=== PATIENT | female | born 1960 | race Two or more races ===

== ENCOUNTER 2018-03-12 16:14 | Emergency (ER) | payer OTHER ==
[~2018-03-12] VITALS: Ht 170.2 cm; Wt 81.6 kg
--- NOTE | 2018-03-12 17:13 | NUR ---
PT IS IN ROOM #1A. DR NUNEZ EVALUATED THE PT.
[2018-03-12] MEDS ORDERED: LISINOPRIL 10 MG TABLET PO ONE (17:30)
[2018-03-12] MEDS ORDERED: HYDROCHLOROTHIAZIDE 25 MG TABLET PO ONE (17:30)
[2018-03-12] MEDS ORDERED: LISINOPRIL 10 MG TABLET ONE (17:32)
[2018-03-12] MEDS ORDERED: HYDROCHLOROTHIAZIDE 25 MG TABLET ONE (17:33)
[2018-03-12] MEDS ORDERED: ACETAMINOPHEN ES 500 MG TABLET PO ONE (17:45)
[2018-03-12] MEDS ORDERED: ACETAMINOPHEN ES 500 MG TABLET ONE (17:54)
--- NOTE | 2018-03-12 18:49 | NUR ---
REPORT GIVEN TO LAST SAWYER RN.
--- NOTE | 2018-03-12 19:30 | NUR ---
Pt awake, alert, oriented x3. No sob noted. No s/sx of distress noted. Resp even and unlabored. Family at bedside. Pt stated that she wants to go home. Will cont to monitor. Call light within reach.
--- NOTE | 2018-03-12 20:25 | NUR ---
Patient discharged to home in stable conditon. Written and verbal after care instructions given. Patient verbalizes understanding of instructions.
[2018-03-12 20:27] VITALS: BP 173/95
== END 2018-03-12 20:27 | disposition home or self-care (01) ==
LOC: ER 16:16
DX: S09.90XA Unspecified injury of head, initial encounter (principal); I10 Essential (primary) hypertension; Z88.2 Allergy status to sulfonamides; Z91.040 Latex allergy status; V48.6XXA Car passenger injured in noncollision transport accident in traffic accident, initial encounter; Y93.89 Activity, other specified; Y92.410 Unspecified street and highway as the place of occurrence of the external cause; Y99.8 Other external cause status
CPT/HCPCS: 70450; 72125; A4663; A9150